=== PATIENT | male | born 1975 | race Caucasian/White ===

== ENCOUNTER 2021-01-11 22:45 | Emergency (ER) | payer OTHER ==
[2021-01-12] MEDS ORDERED: NORCO 5-325 TA1 EACH PO ×2 (05:14→05:15)
== END 2021-01-12 01:30 | disposition home or self-care (01) ==
LOC: FER 22:45
DX: S80.01XA Contusion of right knee, initial encounter (principal); S50.812A Abrasion of left forearm, initial encounter; S50.811A Abrasion of right forearm, initial encounter; S40.212A Abrasion of left shoulder, initial encounter; S40.211A Abrasion of right shoulder, initial encounter; V29.9XXA Motorcycle rider (driver) (passenger) injured in unspecified traffic accident, initial encounter; Y92.410 Unspecified street and highway as the place of occurrence of the external cause
CPT/HCPCS: 73560